=== PATIENT | male | born 1975 | race Caucasian/White ===

== ENCOUNTER 2017-03-03 09:32 | Inpatient (IN) | payer SELFPAY ==
[~2017-03-03] VITALS: Ht 167.6 cm; Wt 69.9 kg
[2017-03-03] MEDS ORDERED: SODIUM CHLORIDE 0.9% 1,000 ML IV ONE (14:16)
[2017-03-03] MEDS ORDERED: MORPHINE SULFATE 4 MG/ML CPJ (NOT FOR IM USE) IV STA (14:16)
[2017-03-03] MEDS ORDERED: ONDANSETRON HCL 4MG/2ML VIAL IV STA (14:16)
[2017-03-03 14:44] LABS: BASOPHILS % 0.5 % (0.0-2.0); EOSINOPHILS % 0.6 % (0.0-5.0); HEMATOCRIT. 45.5 % (42.0-52.0); HEMOGLOBIN. 15.7 g/dL (14.0-18.0); MEAN CORPUSCULAR HEMOGLOBIN 30.9 pg (28.0-32.0); MEAN CORPUSCULAR VOLUME 89.3 fL (80.0-94.0); MEAN PLATELET VOLUME 8.2 fl (7.4-10.4); MONOCYTES % 4.6 % (2.0-8.0); NEUTROPHILS % 74.3 % (40.0-76.0); PLATELET 236 x1000/uL (130-400); RED BLOOD CELL COUNT 5.09 mill/uL (4.7-6.1); RED CELL DISTRIBUTION WIDTH 12.9 % (11.6-14.6)
[2017-03-03 14:49] LABS: CHLORIDE 106 mEq/L (98-107); PARTIAL THROMBOPLASTIN TIME 27.3 sec (23.4-31.0); PROTHROMBIN TIME 10.6 sec (9.4-11.6)
[2017-03-03 14:50] LABS: CLARITY URINE CLEAR (CLEAR); COLOR URINE YELLOW (YELLOW); KETONES URINE TRACE (NEGATIVE); LEUKOCYTE ESTERASE URINE NEGATIVE (NEGATIVE); NITRITE URINE NEGATIVE (NEGATIVE); OCCULT BLOOD URINE NEGATIVE (NEGATIVE); PROTEIN URINE NEGATIVE (NEGATIVE); SPECIFIC GRAVITY URINE 1.023 (1.005-1.030)
[2017-03-03] MEDS ORDERED: PIPERACILLIN/TAZ 3.375G PREMIX 50 ML IV ONE (15:00)
[2017-03-03] MEDS ORDERED: CLINDAMYCIN 600 MG in DEXTROSE 5% WATER 50 ML IV ONE (15:00)
[2017-03-03] MEDS ORDERED: SODIUM CHLORIDE 0.9% 1000ML BAG (SEPSIS BOLUS) IV ONE (15:00)
[2017-03-03 15:05] LABS: CARBON DIOXIDE 28 mEq/L (21-32)
[2017-03-04] VITALS: BP 109/54
[2017-03-04] MEDS ORDERED: CLONIDINE 0.1MG TABLET PO PRN (00:15)
[2017-03-04] MEDS ORDERED: ONDANSETRON HCL 4MG/2ML VIAL IV PRN (00:15)
[2017-03-04] MEDS ORDERED: MAGNESIUM/ALUMINUM HYDROXIDE/SIMETHICONE 30ML UDC PO PRN (00:15)
[2017-03-04] MEDS ORDERED: TEMAZEPAM 15MG CAPSULE PO PRN (00:15)
[2017-03-04] MEDS ORDERED: IPRATROPIUM/ALBUTEROL 0.5-3(2.5)MG/3ML NEB INH PRN (00:15)
[2017-03-04] MEDS ORDERED: MORPHINE SULFATE 2 MG/ML CPJ (NOT FOR IM USE) IV PRN (00:15)
[2017-03-04] MEDS ORDERED: HYDROCODONE/ACETAMINOPHEN 10/325MG TABLET PO PRN (00:15)
[2017-03-04] MEDS ORDERED: ACETAMINOPHEN 325MG TABLET PO PRN (00:15)
[2017-03-04] MEDS ORDERED: DIPHENHYDRAMINE 50MG/ML VIAL IV PRN (00:15)
[2017-03-04 03:00] VITALS: BP 108/53
[2017-03-04] MEDS ORDERED: NAPROXEN 375MG TABLET PO PRN (03:00)
[2017-03-04 04:00] VITALS: BP 108/53
[2017-03-04] MEDS ORDERED: CEFAZOLIN 1000MG PREMIX 50 ML IV SCH (04:00)
[2017-03-04] MEDS ORDERED: SODIUM CHLORIDE 0.9% INJ 3ML FLUSH IVF SCH (06:00)
[2017-03-04 08:00] VITALS: BP 137/84
[2017-03-04] MEDS ORDERED: CELECOXIB 200MG CAPSULE PO NR (10:45)
[2017-03-04 13:31] LABS: BASOPHILS % 0.6 % (0.0-2.0); EOSINOPHILS % 2.4 % (0.0-5.0); HEMOGLOBIN. 14.3 g/dL (14.0-18.0); LYMPHOCYTES % 39.5 % (20.0-50.0); MEAN CORPUSCULAR HEMOGLOBIN 31.6 pg (28.0-32.0); MEAN CORPUSCULAR VOLUME 90.3 fL (80.0-94.0); MEAN PLATELET VOLUME 8.7 fl (7.4-10.4); NEUTROPHILS % 50.5 % (40.0-76.0); PLATELET 225 x1000/uL (130-400); RED BLOOD CELL COUNT 4.54 mill/uL (4.7-6.1); RED CELL DISTRIBUTION WIDTH 12.5 % (11.6-14.6)
[2017-03-04 16:19] VITALS: BP 138/74
== END 2017-03-04 17:46 | disposition home or self-care (01) | DRG 501 ==
LOC: ER 09:37 → EDBEDREQ 14:57 → 6EST 15:35 → EDBEDREQ 15:37 → ENRESERV 22:16
PROVIDERS: ADMIT Internal Medicine; ATTEND Internal Medicine
DX: N47.1 Phimosis (principal); D72.829 Elevated white blood cell count, unspecified; N43.3 Hydrocele, unspecified; S39.012A Strain of muscle, fascia and tendon of lower back, initial encounter; Z79.82 Long term (current) use of aspirin; X58.XXXA Exposure to other specified factors, initial encounter; Y93.89 Activity, other specified; Z72.0 Tobacco use; Y92.89 Other specified places as the place of occurrence of the external cause; Y99.8 Other external cause status
CPT/HCPCS: 36415; 74176; 76870; 80053; 81003; 83605; 83690; 85025; 85610; 85730; 87040; 87086; 93976; 96365; 96368; 96375; 99285; J0690; J1200; J2270; J2405; J2543; J3490; J7030; J7050; J7060